=== PATIENT | female | born 1945 | race Caucasian/White ===

== ENCOUNTER → 2019-06-13 | Outpatient (CLI) | payer MEDICARE, BC | LOC: LL.US 07:24 | PROVIDERS: ATTEND Physician Assistant | DX: C91.10 Chronic lymphocytic leukemia of B-cell type not having achieved remission (principal); R31.29 Other microscopic hematuria; Q44.6 Cystic disease of liver; N28.1 Cyst of kidney, acquired; Z90.49 Acquired absence of other specified parts of digestive tract | CPT/HCPCS: 76700 ==